=== PATIENT | female | born 1975 | race Two or more races ===

== ENCOUNTER 2016-12-08 18:11 | Emergency (ER) | payer SELFPAY ==
[~2016-12-08] VITALS: Ht 149.9 cm; Wt 42.6 kg
[2016-12-08] MEDS ORDERED: SODIUM CHLORIDE FLUSH 10ML SYR IVF ONE (19:00)
[2016-12-08] MEDS ORDERED: SODIUM CHLORIDE 0.9% 1,000ML IVBOLUS ONE (19:00)
[2016-12-08] MEDS ORDERED: ONDANSETRON 2MG/ML, 2ML IVPush ONE (19:00)
[2016-12-08] MEDS ORDERED: ONDANSETRON 2MG/ML, 2ML ONE (19:38)
[2016-12-08 19:55] LABS: HEMATOCRIT 43.5 % (34.6-47.8); HEMOGLOBIN 15.1 g/dL (11.7-16.4); WHITE BLOOD COUNT 6.4 x10^3/uL (3.4-10)
[2016-12-08 20:06] LABS: ASPARTATE AMINO TRANSFERASE 14 U/L (15-37); BLOOD UREA NITROGEN 12 mg/dL (7-18)
[2016-12-08 21:52] VITALS: BP 108/74
== END 2016-12-08 21:56 | disposition home or self-care (01) ==
LOC: ED 21:50
DX: O26.891 Other specified pregnancy related conditions, first trimester (principal); Z3A.10 10 weeks gestation of pregnancy; R10.9 Unspecified abdominal pain; G44.209 Tension-type headache, unspecified, not intractable
CPT/HCPCS: 36415; 76801; 80053; 81003; 84702; 85025; 86901; 96361; 96374; 99285; J2405; J7030